=== PATIENT | male | born 1985 | race Hispanic/Latino ===

== ENCOUNTER 2019-11-14 12:58 | Emergency (ER) | payer OTHER, SELFPAY ==
[2019-11-15 12:55] LABS: SARS-CoV-2 MS2 Positive; SARS-CoV-2 N Gene Positive; SARS-CoV-2 S Gene Positive; SARS-CoV-2 orf1ab Positive
== END 2019-11-14 14:05 | disposition home or self-care (01) ==
LOC: ERS 12:58
DX: U07.1 COVID-19 (principal)
CPT/HCPCS: 87635; 99283; U0003